=== PATIENT | male | born 1995 | race Caucasian/White ===

== ENCOUNTER 2020-02-12 07:57 | Outpatient (REF) | payer OTHER, SELFPAY | END 2020-02-12 07:58 | disposition home or self-care (01) | LOC: HO.LAB 07:57 | PROVIDERS: Visit Provider Internal Medicine | DX: Z20.828 Contact with and (suspected) exposure to other viral communicable diseases (principal) | CPT/HCPCS: C9803; U0003 ==

== ENCOUNTER 2020-06-07 12:43 | Emergency (ER) | payer OTHER, SELFPAY ==
--- NOTE | ~2020-06-07 | CT_ITS ---
EXAMINATION: CT HEAD WITHOUT CONTRAST CLINICAL INFORMATION: Occipital head injury, headache, nausea. COMPARISON: None TECHNIQUE: Contiguous axial imaging was performed from the skull base to vertex without intravenous administration of contrast. Additional 2-D coronal and sagittal reformatted images are generated on the CT workstation and uploaded to PACS. This CT examination was performed using dose optimization techniques as appropriate, variously including the following: *Automated exposure control *Adjustment of mA and/or kV according to patient size (this includes techniques or standardized protocols for targeted exams where dose is matched to indication/reason for exam; i.e. extremities or head) *Use of iterative reconstruction technique DLP: 1021 mGy-cm FINDINGS: There is no intracranial hemorrhage, hematoma, or extra-axial fluid collection. The ventricles are normal in size. There is no hydrocephalus, edema, or mass effect. The pimentel-white matter differentiation appears symmetric. There is no visible acute territorial infarct or mass lesion. The calvarium appears intact. There is no pneumocephalus or orbital emphysema. The visualized sinuses and middle ears and mastoid air cells show no significant mucosal thickening. There are no air-fluid levels. There is borderline scalp soft tissue swelling posterior midline vertex. CT/CT head/brain wo con IMPRESSION: No acute intracranial abnormality.
[2020-06-07 13:07] VITALS: BP 117/80; PULSE 72; RESP 16; TEMP 36.7; O2SAT 99; BMI 34.8
--- NOTE | 2020-06-07 15:15 | ED.GENADULT ---
HPI - General Adult General Chief complaint: Head Injury Stated complaint: HEAD INJ WORK RELATED Time Seen by Provider: 06/07/20 13:19 Source: patient Mode of arrival: ambulatory Limitations: no limitations History of Present Illness HPI narrative: 24-year-old male who presents emergency department for evaluation of headache, dizziness, difficulty concentrating after head injury which occurred yesterday. 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 He states that he was bending down into a metal bin to select an iitem when he stood up and struck the occipital part of his head on the metal ceiling of the bin. He states that he was dazed for approximately 2-3 minutes. He denied loss of consciousness. He states that he felt off balance and had to hold on to the brennen handle while he was driving and standing. He states that he finished his shift but he continued to feel dizzy with a headache and nausea and vomiting. He states that since the injury he has had pain in the back of his head that does radiate around his head in a band like past. The pain is a pulsating pain which is constant but waxes and wanes in intensity. He states the pain is 8/10 at its worst. He is having photophobia, nausea but no vomiting. He denies numbness or weakness. He did not take any medications for his symptoms. He states that he played football in high school and had 3 concussions and his concussion symptoms felt similar to today's symptoms. Related Data Previous Rx's Medication Instructions Recorded ondansetron 4 mg PO Q6-8H PRN #14 tab 06/07/20 Allergies Allergy/AdvReac Type Severity Reaction Status Date / Time No Known Allergies Allergy Unverified 12/03/19 17:28 [No Known Allergies*] Review of Systems Review of Systems: Yes all other systems are reviewed and are negative [facility] Past Medical History [facility] Narrative: Patient has had 3 concussions in the past when he was in high school, he had a cholecystectomy 12/2019 he denies tobacco, alcohol and drug use. 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 Medical History Cholecystectomy planned Social History Social History Advance Directives: No Advance Directives Information Provided: No Physical Exam Vital Signs: Vital Signs: Last Vital Signs Temp 98.1 F 06/07/20 13:07 Pulse 72 06/07/20 13:07 Resp 16 06/07/20 13:07 BP 117/80 06/07/20 13:07 Pulse Ox 99 06/07/20 13:07 Body Mass Index 34.8 Const: General: cooperative and healthy appearing Orientation/consciousness: oriented to person and oriented to place Limitations: no limitations HENMT: Other: Tender occiput with slight soft tissue swelling, no hematoma, no abrasion or laceration Head: Yes normal to inspection and Yes normocephalic Ears: external ears normal General nose exam: Normal external nose present Face and sinus: Yes normal facial exam Mouth: Normal oral and palatal mucosa present Throat: Yes posterior oropharynx normal Eyes: Periorbital: periorbital findings normal Eyelids: Yes eyelids normal Conjunctivae: conjunctivae normal Sclerae: sclerae normal Corneas: corneas normal Pupils: Equal, round and reactive pupils present Direct Ophthalmoscopy: normal light reflex Neck: Neck: Yes full ROM, Yes no lymphadenopathy, Yes no meningeal signs, Yes trachea midline and Yes supple Chest: Chest palpation & inspection: normal inspection of the chest and normal palpation of entire chest wall Resp: Effort & Inspection: normal respiratory effort and able to speak in complete sentences Auscultation: clear to auscultation bilaterally Cardio: Rate: regular rate Rhythm: regular rhythm Heart sounds: S1 normal heart sound present, S2 normal heart sound present and no murmurs GI: Inspection: Yes normal to inspection Palpation (GI): Soft to palpation, nontender, no guarding, not rigid and No hepatosplenomegaly present : General: Yes no CVA tenderness Back/Spine/Pelvis: Back: no CVA tenderness Cervical Spine: normal cervical lordosis Thoracic/Lumbar Spine: thoracic and lumbar spine normal to inspection Skin: Lesions: no lesions Rashes: no rashes Wounds: no wounds Neuro: General: oriented to person, oriented to place and no meningeal signs Cranial nerves: Yes CN's II-XII intact bilaterally and Yes Equal, round and reactive pupils present Cognition (Neuro): normal cognition Motor exam (neuro): 5/5 motor strength present throughout Extrem: General: Yes normal to inspection and Yes full ROM Psych: Appearance: well kempt Mental Status: mental status grossly normal Speech and movement: Normal speech and movement present Affect: normal affect Attitude: cooperative Thought process: Normal thought process present Thought content: Normal thought content present Course Course Course Narrative: 24-year-old male who presents emergency department for evaluation of headache, scalp pain, nausea, dizziness, photophobia and difficulty concentrating after sustaining a head injury at work yesterday. Take patient does have tenderness with palpation of the occiput of his scalp. His exam was otherwise unremarkable. CT scan of the head revealed no skull fracture or bleed. Patient's presentation symptoms are consistent with a postconcussion syndrome. The patient will be discharged home with a prescription for Zofran ODT 4 mg every 6-8 hours as needed for nausea and vomiting. He was also advised to take Tylenol and ibuprofen for pain. The patient will not be able to return to work until he is cleared by an occupational health clinic and until he is symptom-free for period of time to be determined by Occupational Health. He was given verbal and printed instructions on head injuries and concussions and discharged home. Discharge Plan Discharge Clinical Impression: Concussion without loss of consciousness Qualifiers: Encounter type: initial encounter Qualified Code(s): S06.0X0A - Concussion without loss of consciousness, initial encounter Closed head injury Qualifiers: Encounter type: initial encounter Qualified Code(s): S09.90XA - Unspecified injury of head, initial encounter Patient Disposition: Home, Self-Care Instructions: Chronic Post Traumatic Headache (ED) Additional Instructions: The CT scan of your head was normal. You have no skull fracture and no bleeding in the brain. Your symptoms are consistent with a concussion caused by the head injury that he sustained at work. Take ibuprofen 200 mg pills, 3 pills every 6 hours as needed for pain. Take Tylenol (acetaminophen) 500 mg pills, 2 pills every 4 to 6 hours as needed for pain. Take Zofran (ondansetron) 4 mg oral dissolvable tablets, 1 pill dissolved in your mouth every 6-8 hours as needed for nausea and vomiting. You cannot return to work until your asymptomatic for a period of time, this period of times to be determined by the occupational health clinic. Contact your employer to see if you can use [employer] [facility] or if a half to use a different occupational health clinic. You should follow-up within 1-2 days for re-evaluation. Prescriptions: New ondansetron 4 mg tablet,disintegrating 4 mg PO Q6-8H PRN (Reason: nausea and vomiting) Qty: 14 RF: 0 Stand Alone Forms: Work/School Release
[2020-06-07 15:35] VITALS: BP 132/73; PULSE 73; RESP 16; TEMP 36.8; O2SAT 99
== END 2020-06-07 15:55 | disposition home or self-care (01) ==
PROVIDERS: Emergency Provider Emergency Medicine Emergency Medical Services
DX: S06.0X0A Concussion without loss of consciousness, initial encounter (principal); S09.90XA Unspecified injury of head, initial encounter; W22.09XA Striking against other stationary object, initial encounter; Y93.89 Activity, other specified; Y92.63 Factory as the place of occurrence of the external cause; Y99.0 Civilian activity done for income or pay
CPT/HCPCS: 70450; 99284